=== PATIENT | male | born 1970 | race Caucasian/White ===

== ENCOUNTER 2016-11-01 20:17 | Emergency (ER) | payer BC ==
[2016-11-01 21:33] VITALS: BP 130/81
== END 2016-11-01 21:33 | disposition home or self-care (01) ==
LOC: ED 20:17
DX: S91.332A Puncture wound without foreign body, left foot, initial encounter (principal); W22.8XXA Striking against or struck by other objects, initial encounter; Y93.89 Activity, other specified; Y92.89 Other specified places as the place of occurrence of the external cause; Y99.8 Other external cause status
CPT/HCPCS: Q0092